=== PATIENT | male | born 1970 | race Caucasian/White ===

== ENCOUNTER 2017-11-17 06:51 | Day surgery (SDC) | payer BC ==
[~2017-11-17] VITALS: Ht 188 cm; Wt 87.7 kg
[~2017-11-17 06:51] MED LIST: LOSA25 PO; MAGCIT300 PO
[2017-11-17] MEDS ORDERED: DIPH50 (07:06)
[2017-11-17] MEDS ORDERED: VALA500 (07:06)
== END 2017-11-17 08:49 | disposition home or self-care (01) ==
LOC: ORSCSDS 06:51
PROVIDERS: Surgery
PROC: 0DJD8ZZ Inspection of Lower Intestinal Tract, Via Natural or Artificial Opening Endoscopic (ICD-10-PCS; principal; 2017-11-17 08:00)
DX: R19.5 Other fecal abnormalities (principal); E78.5 Hyperlipidemia, unspecified; I10 Essential (primary) hypertension; Z83.71 Family history of colonic polyps; Z72.0 Tobacco use; Z79.899 Other long term (current) drug therapy
CPT/HCPCS: J0330; J1980; J2405; J7120

== ENCOUNTER 2024-01-14 05:18 | Inpatient (IN) | payer BC ==
[~2024-01-14] VITALS: Ht 175.3 cm; Wt 83.2 kg
[~2024-01-14 05:18] MED LIST changes: +BENADRYL25 MG PO; +DIPH50; +IBUP200 PO; +TELM80 PO; +TELMISARTAN80 MG PO; +VALA500; +Ventolin/Prove6.7 GM INH; +ZOLP10 PO
[2024-01-14] MEDS ORDERED: MethylPREDNISolone Sod Succ 125 MG Vial IV ONE (05:30)
[2024-01-14] MEDS ORDERED: Magnesium Sulf 2 GM/Water 50ML 50 ML IV ONE (05:30)
[2024-01-14] MEDS ORDERED: NS 1,000 ML IV SCH (05:40)
[2024-01-14 05:41] LABS: Base Excess Venous 0 mmol/L; Bicarbonate Venous 22.6 mmol/L (24.0-30.0); pH Blood Venous 7.26 (7.34-7.37)
[2024-01-14 05:42] LABS: BASOPHILS ABSOLUTE AUTO 0.09 K/mm3 (0.00-0.23); BASOPHILS PERCENT AUTO 1 % (0-2); EOSINOPHILS PERCENT AUTO 23 % (0-6); Hematocrit 50.1 % (37.0-53.0); IMMATURE GRAN ABSOLUTE AUTO 0.04 K/mm3 (0.00-0.10); IMMATURE GRAN PERCENT AUTO 0 % (0-1); LYMPHOCYTES ABSOLUTE AUTO 1.16 K/mm3 (0.84-5.20); LYMPHOCYTES PERCENT AUTO 11 % (21-46); MONOCYTES PERCENT AUTO 8 % (4-13); Mean Corpuscular HGB 35.4 pg (26.0-34.0); Mean Corpuscular HGB Conc 35.9 g/dL (31.5-36.5); Mean Corpuscular Volume 99 fL (80-100); Mean Platelet Volume 9.9 fL (9.1-12.4); NEUTROPHILS ABSOLUTE AUTO 6.14 K/mm3 (1.96-9.15); NEUTROPHILS PERCENT AUTO 58 % (41-73); Platelet Count 200 K/mm3 (150-400); RDW Coefficient Variation 11.9 % (11.7-14.2); RDW Standard Deviation 42.9 fL (35.1-46.3); Red Blood Cell Count 5.08 M/mm3 (4.30-5.90); White Blood Cell Count 10.63 K/mm3 (4.00-11.30)
[2024-01-14 05:44] LABS: PO2 Venous 58.6 mmHg (38-42)
[2024-01-14] MEDS ORDERED: Albuterol 2.5 MG/3 ML VIAL INH SCH (05:45)
[2024-01-14] MEDS ORDERED: Ipratropium Bromide INH 0.02% 0.5 mg/2.5ML Vial INH SCH (05:45)
[2024-01-14] MEDS ORDERED: Ondansetron HCl 2 MG / ML 2ML Vial IV PRN (05:55)
[2024-01-14] MEDS ORDERED: Ipratropium/Albuterol SulF 2.5-0.5MG/3 ML Amp INH PRN (05:55)
[2024-01-14] MEDS ORDERED: MethylPREDNISolone Sod Succ 125 MG Vial IV SCH (06:00)
[2024-01-14 06:02] LABS: Albumin, Blood 3.8 g/dL (3.4-5.0); Albumin/Globulin Ratio 1.1 (0.8-1.8); Bilirubin, Total 0.8 mg/dL (0.1-1.0); Bun/Creatinine Ratio 13.7 (12.0-20.0); Calcium, Blood 8.6 mg/dL (8.5-10.1); Creatinine, Blood 0.88 mg/dL (0.60-1.20); Globulin, Blood 3.6 g/dL (2.2-4.0); Potassium, Blood 4.3 mmol/L (3.5-5.5); Total Protein, Blood 7.4 g/dL (6.4-8.2)
[2024-01-14 06:07] LABS: BASOPHILS PERCENT MAN 0 % (0-2); EOSINOPHILS ABSOLUTE MAN 2.55 K/mm3 (0.00-0.68); EOSINOPHILS PERCENT MAN 24 % (0-6); LYMPHOCYTES ABSOLUTE MAN 1.27 K/mm3 (0.84-5.20); LYMPHOCYTES PERCENT MAN 12 % (21-46); MONOCYTES ABSOLUTE MAN 0.53 K/mm3 (0.16-1.47); MONOCYTES PERCENT MAN 5 % (4-13); NEUTROPHILS ABSOLUTE MAN 6.27 K/mm3 (1.96-9.15); SEG NEUTROPHILS PERCENT MAN 59 % (41-73); TOTAL CELLS COUNTED 100
[2024-01-14] MEDS ORDERED: Azithromycin 500 MG in NS 250 ML IV SCH (06:30)
[2024-01-14 07:45] LABS: Influenza A, PCR NEGATIVE (NEGATIVE); Influenza B, PCR NEGATIVE (NEGATIVE); Resp Syncytial Virus, PCR NEGATIVE (NEGATIVE); SARS-Cov-2 (COVID-19) PCR, MMC NEGATIVE (NEGATIVE)
[2024-01-14 08:11] VITALS: BP 128/88
[2024-01-14 08:15] VITALS: BP 125/84
[2024-01-14] MEDS ORDERED: Enoxaparin 40 MG/0.4 ML SYR SC SCH (09:00)
--- NOTE | 2024-01-14 10:25 | NUR ---
ARRIVAL TO PCU: PT ARRIVED TO [facility] VIA GURNEY AT APPROX [phone]. PT ON RA AT TIME OF ARRIVAL, COMMUNICATING W/ STAFF. ALERT, ORIENTED X4. ABLE TO STAND AND TRANSFER TO BED W/ SBA FROM STAFF. RT TO BEDSIDE W/ BIPAP. SPO2 88-90% ON RA, 3-4L VIA NC PLACED TO MAINTAIN SPO2 >92%. PT REPORTS IMPROVEMENT IN BREATHING BUT STATES IS STILL WORSE THAN BASELINE. BILATERAL WHEEZE T/O. HR 110'S, SINUS ON TELE. BP STABLE, MAP >65. PT DENIES CHEST PAIN/PRESSURE. ABLE TO VOID INDEPENDENTLY IN URINAL. PT ORIENTED TO ROOM/UNIT/CALL LIGHT. FIRE/IGNITION RISK ASSESSED; PT IS NEVER SMOKER, NO IGNITION SOURCES PRESENT. FAMILY AT BEDSIDE. MD WILKERSON TO BEDSIDE THIS AM WELL. NO OTHER NEEDS AT THIS TIME, CALL LIGHT IN REACH.
[2024-01-14 11:36] VITALS: BP 127/91
[2024-01-14] MEDS ORDERED: Losartan Potassium 50 MG Tab PO SCH (12:00)
[2024-01-14] MEDS ORDERED: Ipratropium/Albuterol SulF 2.5-0.5MG/3 ML Amp INH SCH (12:20)
[2024-01-14] MEDS ORDERED: Albuterol 2.5 MG/3 ML VIAL INH PRN (12:20)
[2024-01-14 16:32] VITALS: BP 133/79
--- NOTE | 2024-01-14 16:59 | NUR ---
END OF SHIFT NOTE: NO ACUTE EVENTS FOLLOWING ARRIVAL TO PCU THIS AM. PT HAS REMAINED ALERT, ORIENTED X4. ABLE TO CALL APPROPRIATELY & COMMUNICATE NEEDS W/ STAFF. HR 100-110'S, SINUS ON TELE. SBP 120-130'S, DENIES CP/PRESSURE. SPO2 >90% ON 3-4L VIA NC, BIPAP INTERMITTENTLY. CURRENT BIPAP SETTINGS 12/6 FIO2 30%. AFEBRILE. BREATHING TX T/O SHIFT, PT REPORTS CONTINUED IMPROVEMENT IN BREATHING. ABLE TO EAT LUNCH ON NC & REMAIN ON NC TO CONVERSE W/ FAMILY AT BEDSIDE. VOIDING INDEPENDENTLY IN URINAL. REPOSITIONING IN BED INDEPENDENTLY. DENTAL HYGIENIST TO BEDSIDE THIS AFTERNOON; CALL TO MD WILKERSON REGARDING THRUSH, ORDERS FOR NYSTATIN QID. NO OTHER NEEDS AT THIS TIME. CALL LIGHT IN REACH, BED IN LOWEST POSITION. WILL REPORT TO ONCOMING RN.
[2024-01-14 19:49] VITALS: BP 132/94
--- NOTE | 2024-01-14 20:53 | NUR ---
ASSUMPTION OF CARE AFTER RECEIVING REPORT FROM DAY RN, THIS RN ASSUMED CARE AT APPROX 1915. PATIENT ALERT AND ORIENTED X4. VISITING WITH FAMILY, FRIENDS AT BEDSIDE. TELEMETRY SHOWING SINUS TACH 110s-120s. BP STABLE. DENIES CHEST PAIN, PRESSURE. ON BIPAP 12/6 30%. SATs >90%. REQUESTING A BREAK FROM BIPAP ONCE BREATHING TREATMENT IS COMPLETE. ON 3-4L VIA NC WITH BREAKS. WHEEZING AUSCULTATED T/O. PATIENT IS INDEPENDENT WITH ADL's IN BED. IS A STAND BY ASSIST FOR CORD, DEVICE MANAGEMENT WITH MOBILITY. USES URINAL IN BED. CALL LIGHT IN REACH.
[2024-01-14] MEDS ORDERED: Nystatin 100,000 Unit/ML Susp 5 ML UDC SS SCH (21:00)
[2024-01-15 00:02] VITALS: BP 132/85
[2024-01-15 03:58] VITALS: BP 114/84
[2024-01-15 04:33] LABS: BASOPHILS ABSOLUTE AUTO 0.01 K/mm3 (0.00-0.23); BASOPHILS PERCENT AUTO 0 % (0-2); EOSINOPHILS PERCENT AUTO 0 % (0-6); Hematocrit 46.7 % (37.0-53.0); Hemoglobin 16.4 g/dL (13.5-17.5); IMMATURE GRAN ABSOLUTE AUTO 0.07 K/mm3 (0.00-0.10); IMMATURE GRAN PERCENT AUTO 1 % (0-1); LYMPHOCYTES ABSOLUTE AUTO 0.72 K/mm3 (0.84-5.20); LYMPHOCYTES PERCENT AUTO 7 % (21-46); MONOCYTES ABSOLUTE AUTO 0.17 K/mm3 (0.16-1.47); MONOCYTES PERCENT AUTO 2 % (4-13); Mean Corpuscular HGB 34.7 pg (26.0-34.0); Mean Corpuscular HGB Conc 35.1 g/dL (31.5-36.5); Mean Corpuscular Volume 99 fL (80-100); Mean Platelet Volume 10.1 fL (9.1-12.4); NEUTROPHILS ABSOLUTE AUTO 9.59 K/mm3 (1.96-9.15); NEUTROPHILS PERCENT AUTO 91 % (41-73); Platelet Count 229 K/mm3 (150-400); RDW Coefficient Variation 11.8 % (11.7-14.2); RDW Standard Deviation 43.1 fL (35.1-46.3); Red Blood Cell Count 4.72 M/mm3 (4.30-5.90); White Blood Cell Count 10.56 K/mm3 (4.00-11.30)
--- NOTE | 2024-01-15 04:45 | NUR ---
SHIFT SUMMARY NO ACUTE CHANGES SINCE ASSUMPTION OF CARE. PATIENT RESTED QUIETLY OR SLEPT INTERMITTENTLY THROUGHOUT THE NIGHT. VSS. TELEMETRY CURRENTLY SHOWING SINUS 80s-90s. TOLERATED BIPAP THROUGHOUT NIGHT, SETTINGS REMAIN 12/6 30%. SATs >90%. EXPERIENCES EPISODES OF INCREASED HACKING COUGH. PATIENT DOES REPORT THAT HE FEELS THAT HIS BREATHING HAS IMPROVED SINCE ADMISSION. DECREASED WHEEZING NOTED T/O. PATIENT REPOSITIONS HIMSELF INDEPENDENTLY IN BED. VOIDING. CALL LIGHT IN REACH. BED IN LOWEST POSITION. WILL CONTINUE TO MONITOR AND REPORT TO ONCOMING RN.
[2024-01-15 04:52] LABS: Albumin, Blood 3.5 g/dL (3.4-5.0); Albumin/Globulin Ratio 1.1 (0.8-1.8); Bilirubin, Total 0.4 mg/dL (0.1-1.0); Bun/Creatinine Ratio 20.8 (12.0-20.0); Calcium, Blood 8.9 mg/dL (8.5-10.1); Creatinine, Blood 0.87 mg/dL (0.60-1.20); Globulin, Blood 3.3 g/dL (2.2-4.0); Potassium, Blood 4.8 mmol/L (3.5-5.5); Total Protein, Blood 6.8 g/dL (6.4-8.2)
[2024-01-15 07:14] VITALS: BP 123/77
[2024-01-15 11:27] VITALS: BP 142/106
[2024-01-15 15:43] VITALS: BP 117/78
--- NOTE | 2024-01-15 17:01 | NUR ---
END OF SHIFT NOTE: NO ACUTE EVENTS THIS SHIFT. PT HAS CONTINUED TO USE BIPAP FOR PERIODS OF TIME T/O THE SHIFT, SETTINGS 09/16 30% FIO2. 2-3L VIA NC WHEN OFF BIPAP; SPO2 80'S AT TIMES WHEN SWITCHING BETWEEN NC & BIPAP. REPORTS IMPROVEMENT IN BREATHING SINCE ADMISSION. LUNG SOUNDS W/ EXP WHEEZE T/O. HR 100-110'S, SINUS TACH ON TELE. BP STABLE, MAP >65. PT ABLE TO VOID IN URINAL & REPOSITION SELF INDEPENDENTLY. ABLE TO AMBULATE TO BATHROOM W/ SBA FOR LINE MANAGEMENT. FAMILY AT BEDSIDE FOR ENTIRE SHIFT. NO OTHER NEEDS AT THIS TIME. CALL LIGHT IN REACH, BED IN LOWEST POSITION. WILL REPORT TO ONCOMING RN.
[2024-01-15] MEDS ORDERED: NS 250 ML IV PRN (17:55)
[2024-01-15] MEDS ORDERED: CefTRIAXone Sodium 1,000 MG in NS 100 ML IV SCH (18:00)
[2024-01-15 23:22] VITALS: BP 125/84
[2024-01-16 03:44] VITALS: BP 123/73
[2024-01-16 03:59] LABS: BASOPHILS ABSOLUTE AUTO 0.01 K/mm3 (0.00-0.23); BASOPHILS PERCENT AUTO 0 % (0-2); EOSINOPHILS PERCENT AUTO 0 % (0-6); Hematocrit 44.1 % (37.0-53.0); Hemoglobin 15.4 g/dL (13.5-17.5); IMMATURE GRAN ABSOLUTE AUTO 0.07 K/mm3 (0.00-0.10); IMMATURE GRAN PERCENT AUTO 1 % (0-1); LYMPHOCYTES PERCENT AUTO 5 % (21-46); MONOCYTES ABSOLUTE AUTO 0.39 K/mm3 (0.16-1.47); MONOCYTES PERCENT AUTO 3 % (4-13); Mean Corpuscular HGB 34.5 pg (26.0-34.0); Mean Corpuscular HGB Conc 34.9 g/dL (31.5-36.5); Mean Corpuscular Volume 99 fL (80-100); Mean Platelet Volume 10.3 fL (9.1-12.4); NEUTROPHILS ABSOLUTE AUTO 14.16 K/mm3 (1.96-9.15); NEUTROPHILS PERCENT AUTO 92 % (41-73); Platelet Count 240 K/mm3 (150-400); RDW Coefficient Variation 11.9 % (11.7-14.2); RDW Standard Deviation 43.7 fL (35.1-46.3); Red Blood Cell Count 4.46 M/mm3 (4.30-5.90); White Blood Cell Count 15.43 K/mm3 (4.00-11.30)
[2024-01-16 04:19] LABS: Bun/Creatinine Ratio 35.2 (12.0-20.0); Calcium, Blood 8.8 mg/dL (8.5-10.1); Creatinine, Blood 0.83 mg/dL (0.60-1.20); Potassium, Blood 4.6 mmol/L (3.5-5.5)
--- NOTE | 2024-01-16 05:50 | NUR ---
Pt did not require BiPap overnight, felt work of breathing much better than night prior. Still requiring O2 3 lpm via NC to maintain O2 Sat. Pt appears to have slept well this shift, continues nebulizer treatments with reported good results. Pt reports overall feeling much better. Please see full assessment for further details. No additional complaints or concerns at this time, will continue to monitor.
[2024-01-16] MEDS ORDERED: Azithromycin 500 MG in NS 250 ML IV SCH (09:00)
[2024-01-16] MEDS ORDERED: Lactobacil 2-S.Thermo-Bifido 1 1 Cap PO SCH (09:00)
[2024-01-16] MEDS ORDERED: Benzonatate 100 MG Cap PO PRN (09:00)
[2024-01-16 09:05] VITALS: BP 130/76
[2024-01-16 12:14] VITALS: BP 122/77
--- NOTE | 2024-01-16 12:44 | NUR ---
TRANSFER TO MEDICAL UNIT: PATIENT READY FOR TRANSFER PER ORDERS. REPORT CALLED TO [facility]. PATIENT TRANSFERRED IN WHEELCHAIR WITH HEAT SET OPERATOR. FAMILY ACCOMPANIED THE PATIENT. PATIENT STABLE AT TIME OF DISCHARGE.
--- NOTE | 2024-01-16 13:23 | NUR ---
PT TRANSFERED TO MED FLOOR. THIS RN TOOK OVER CARE. REPORT RECIEVED FROM EXPEDITER SERVICE ORDER. PT IS ON 3L NC. OXIMETER SET UP AT BEDSIDE. PT CURRENTLY SATTING AT 92%. FAMILY AT BEDSIDE. PT REQUESTED BIPAP BE SET UP FOR LATER USE. RT NOTIFIED AND WILL SET UP BIBAP SOON. ALERT AND ORIENTED X4
[2024-01-16 14:49] VITALS: BP 116/72
--- NOTE | 2024-01-16 18:41 | NUR ---
PT IS ALERT AND ORIENTED X4, IV ANTIBIOTICS AND STEROIDS CONTINUED, INDEPENDENT IN THE ROOM, 2L NC, INTERMITTENT DRY COUGH, TREATED PER EMAR. FAMILY HAS BEEN AT THE BEDSIDE DURING SHIFT. PT REPORTS THAT HE FEELS MUCH BETTER TODAY AND WAS ABLE TO TAKE A SHOWER WITH ONLY SLIGHT SOB TOWARDS THE END OF SHOWER. ABLE TO MAKE NEEDS KNOWN, WHEEZING NOTED IN THE LLL. BM TODAY.
[2024-01-16 19:24] VITALS: BP 126/80
[2024-01-17 03:59] VITALS: BP 114/81
[2024-01-17 04:56] LABS: BASOPHILS ABSOLUTE AUTO 0.01 K/mm3 (0.00-0.23); BASOPHILS PERCENT AUTO 0 % (0-2); EOSINOPHILS PERCENT AUTO 0 % (0-6); Hematocrit 42.7 % (37.0-53.0); Hemoglobin 15.1 g/dL (13.5-17.5); IMMATURE GRAN ABSOLUTE AUTO 0.09 K/mm3 (0.00-0.10); IMMATURE GRAN PERCENT AUTO 1 % (0-1); LYMPHOCYTES ABSOLUTE AUTO 0.75 K/mm3 (0.84-5.20); LYMPHOCYTES PERCENT AUTO 6 % (21-46); MONOCYTES ABSOLUTE AUTO 0.31 K/mm3 (0.16-1.47); MONOCYTES PERCENT AUTO 2 % (4-13); Mean Corpuscular HGB 35.1 pg (26.0-34.0); Mean Corpuscular HGB Conc 35.4 g/dL (31.5-36.5); Mean Corpuscular Volume 99 fL (80-100); Mean Platelet Volume 10.5 fL (9.1-12.4); NEUTROPHILS ABSOLUTE AUTO 12.25 K/mm3 (1.96-9.15); NEUTROPHILS PERCENT AUTO 91 % (41-73); Platelet Count 215 K/mm3 (150-400); RDW Coefficient Variation 11.8 % (11.7-14.2); White Blood Cell Count 13.41 K/mm3 (4.00-11.30)
[2024-01-17 05:36] LABS: Bun/Creatinine Ratio 37.1 (12.0-20.0); Calcium, Blood 8.6 mg/dL (8.5-10.1); Creatinine, Blood 0.76 mg/dL (0.60-1.20); Potassium, Blood 4.3 mmol/L (3.5-5.5)
[2024-01-17 07:59] VITALS: BP 127/75
[2024-01-17] MEDS ORDERED: Dextromethorphan Polistirix 30 MG/5 ML 5ML Oral Syringe PO PRN (12:15)
[2024-01-17] MEDS ORDERED: Mometasone/Formoterol MDI 100/5 mcg 13 GM INH SCH (13:50)
--- NOTE | 2024-01-17 15:19 | NUR ---
DAY SHIFT SUMMARY PT A&O X 4, PLEASANT. AT BEDSIDE MOST OF THE DAY. PT CONTINUED ON 2L 02 DUE TO REPORTING SOB WITH ANY KIND OF EXERTION OR COUGHING. PT HAS FEAR THAT THE SOB/COUGH WILL CAUSE AN ASTHMA ATTACK. PT BIOX REMAINED STABLE THROUGHOUT THE DAY. PT REPORTING THAT HIS LUNGS HAVE NEVER FELT YANCI SAME SINCE HE HAD COVID IN 2022. LUNGS SOUND CLEAR/DIMINISHED. COUGH HAS SCANT AMOUNT OF CLEAR-YELLOW SPUTUM. PT PHYSICIAN ADDED COUGH SYRUP TODAY AND DISCONTINUED THE TESSALON PEARLS. PT RESTING COMFORTABLY THROUGHOUT THE SIFT. NO ACUTE CHANGES. 01/17/24 ARABELLA BARRAZA RN
[2024-01-17 15:25] VITALS: BP 138/87
[2024-01-17] MEDS ORDERED: Omeprazole 20 MG CapCR PO SCH (16:30)
[2024-01-17] MEDS ORDERED: NS 100 ML IV ONE (16:51)
[2024-01-17 19:28] VITALS: BP 133/92
[2024-01-18 03:34] VITALS: BP 121/79
[2024-01-18 05:18] LABS: BASOPHILS ABSOLUTE AUTO 0.03 K/mm3 (0.00-0.23); BASOPHILS PERCENT AUTO 0 % (0-2); EOSINOPHILS PERCENT AUTO 0 % (0-6); Hematocrit 42.9 % (37.0-53.0); Hemoglobin 15.1 g/dL (13.5-17.5); IMMATURE GRAN ABSOLUTE AUTO 0.26 K/mm3 (0.00-0.10); IMMATURE GRAN PERCENT AUTO 2 % (0-1); LYMPHOCYTES ABSOLUTE AUTO 1.08 K/mm3 (0.84-5.20); LYMPHOCYTES PERCENT AUTO 8 % (21-46); MONOCYTES ABSOLUTE AUTO 0.97 K/mm3 (0.16-1.47); MONOCYTES PERCENT AUTO 7 % (4-13); Mean Corpuscular HGB 34.9 pg (26.0-34.0); Mean Corpuscular HGB Conc 35.2 g/dL (31.5-36.5); Mean Corpuscular Volume 99 fL (80-100); Mean Platelet Volume 10.6 fL (9.1-12.4); NEUTROPHILS ABSOLUTE AUTO 10.89 K/mm3 (1.96-9.15); NEUTROPHILS PERCENT AUTO 82 % (41-73); Platelet Count 208 K/mm3 (150-400); RDW Coefficient Variation 11.5 % (11.7-14.2); RDW Standard Deviation 42.3 fL (35.1-46.3); Red Blood Cell Count 4.33 M/mm3 (4.30-5.90); White Blood Cell Count 13.23 K/mm3 (4.00-11.30)
--- NOTE | 2024-01-18 05:57 | NUR ---
SUMMARY: PT A/OX4, IS INDEPENDENT IN ROOM AND CALLS APPROPRIATELY TO SPECIFY NEEDS. HE REPORTS FEELING MUCH BETTER AND STATES THAT DYSPNEA AND SOB IS DRASTICALLY IMPROVED. SPO2 IS WNL ON 1.5L NC AND CONT BIOX IS INTACT. PRN COUGH MEDICINE WAS RECEIVED FOR TOLERABLE RELIEF AND RT PROVIDED TX'S/NEBS PER EMAR. HE WAS NSR AT 70'S-90'S BPM. NO ACUTE CHANGES AND VSS/AFEBRILE. WCTM AND REPORT TO DAY RN.
[2024-01-18 07:44] VITALS: BP 127/83
[2024-01-18] MEDS ORDERED: Dextromethorphan Polistirix 30 MG/5 ML 5ML Oral Syringe PO PRN (08:00)
[2024-01-18] MEDS ORDERED: PredniSONE 20 MG Tab PO SCH (09:00)
[2024-01-18] MEDS ORDERED: AMOCLA875 PO (12:45)
[2024-01-18] MEDS ORDERED: DEXT30SU PO (12:48)
[2024-01-18] MEDS ORDERED: IPRAT-ALBUT 0.5-3 ML INH (12:49)
[2024-01-18] MEDS ORDERED: DULERA 100 MCG/13 GM INH (12:51)
[2024-01-18] MEDS ORDERED: NYSTATIN100000 U10 MT (12:53)
[2024-01-18] MEDS ORDERED: OMEP20ER PO (12:54)
[2024-01-18] MEDS ORDERED: PRED20 PO (12:57)
[2024-01-18] MEDS ORDERED: VISBIOME 112.51 EACH PO (12:58)
--- NOTE | 2024-01-18 13:48 | NUR ---
PT DISCHARGED HOME. DISCHARGE INSTRUCTIONS DISCUSSED WITH PT AND SPOUSE. PT ONLY CONCERN WAS HIS COUGH, PER MD. HE COULD HAVE COUGH FOR UP TO A MONTH. EMPHASIZED IMPORTANCE OF NOT PUSHING HIMSELF TOO HARD AND TO REST IF HE FEELS SOB. EXPLAINED IMPORTANCE OF TAKING MEDICATIONS PRESCRIBED AND FOLLOW UP WITH PCP AND ZIPPER CUTTER. ALERT AND ORIENTED X4 R/A. TRANSPORTED TO CAR BY WHEELCHAIR.
== END 2024-01-18 13:40 | disposition home or self-care (01) | DRG 871 ==
LOC: ER 05:18 → PCU 05:50 → MEDS 05:50 → PCU 08:03 → MEDS 01-16 12:47
PROVIDERS: Emergency Medicine; Internal Medicine; ADMIT Internal Medicine
DX: A41.9 Sepsis, unspecified organism (principal); J18.9 Pneumonia, unspecified organism; J96.01 Acute respiratory failure with hypoxia; J45.901 Unspecified asthma with (acute) exacerbation; T38.0X5A Adverse effect of glucocorticoids and synthetic analogues, initial encounter; I10 Essential (primary) hypertension; R73.9 Hyperglycemia, unspecified; Z86.16 Personal history of COVID-19; D72.19 Other eosinophilia; Z88.5 Allergy status to narcotic agent; Z79.899 Other long term (current) drug therapy; Z88.8 Allergy status to other drugs, medicaments and biological substances; R63.4 Abnormal weight loss; Z68.22 Body mass index [BMI] 22.0-22.9, adult
CPT/HCPCS: 0241U; 36415; 71045; 80048; 80053; 82803; 83036; 84145; 85025; 85379; 87449; 94640; 94644; 94660; 94664; 94760; 94762; 96365; 96366; 96368; 96375; 99285-25; A9270; J0456; J0696; J1650; J2930; J3475; J7030; J7050; J7512

== ENCOUNTER 2024-08-23 04:09 | Emergency (ER) | payer BC ==
[~2024-08-23] VITALS: Ht 188 cm; Wt 88.5 kg
[~2024-08-23 04:09] MED LIST changes: +AMOCLA875 PO; +DEXT30SU PO; +DULERA 100 MCG/13 GM INH; +IPRAT-ALBUT 0.5-3 ML INH; +NYSTATIN100000 U10 MT; +OMEP20ER PO; +PRED20 PO; +VISBIOME 112.51 EACH PO
[2024-08-23] MEDS ORDERED: Azithromycin 250 MG Tab PO ONE (05:30)
[2024-08-23] MEDS ORDERED: AZIT250 PO (05:39)
[2024-08-23] MEDS ORDERED: DELTASONE20 MG PO (05:39)
== END 2024-08-23 05:47 | disposition home or self-care (01) ==
LOC: ER 04:09
DX: J45.901 Unspecified asthma with (acute) exacerbation (principal); I10 Essential (primary) hypertension; Z20.818 Contact with and (suspected) exposure to other bacterial communicable diseases; Z79.899 Other long term (current) drug therapy; Z88.5 Allergy status to narcotic agent
CPT/HCPCS: 99283; A9270

== ENCOUNTER 2025-02-15 12:12 | Emergency (ER) | payer BC ==
[~2025-02-15] VITALS: Ht 188 cm; Wt 72.6 kg
[~2025-02-15 12:12] MED LIST changes: +AZIT250 PO; +DELTASONE20 MG PO
[2025-02-15 13:08] LABS: BASOPHILS ABSOLUTE AUTO 0.04 K/mm3 (0.00-0.23); BASOPHILS PERCENT AUTO 0 % (0-2); EOSINOPHILS ABSOLUTE AUTO 0.21 K/mm3 (0.00-0.68); EOSINOPHILS PERCENT AUTO 2 % (0-6); Hematocrit 42.3 % (37.0-53.0); IMMATURE GRAN ABSOLUTE AUTO 0.04 K/mm3 (0.00-0.10); IMMATURE GRAN PERCENT AUTO 0 % (0-1); LYMPHOCYTES ABSOLUTE AUTO 0.89 K/mm3 (0.84-5.20); LYMPHOCYTES PERCENT AUTO 7 % (21-46); MONOCYTES ABSOLUTE AUTO 1.07 K/mm3 (0.16-1.47); MONOCYTES PERCENT AUTO 8 % (4-13); Mean Corpuscular HGB 34.3 pg (26.0-34.0); Mean Corpuscular HGB Conc 35.5 g/dL (31.5-36.5); Mean Corpuscular Volume 97 fL (80-100); Mean Platelet Volume 9.9 fL (9.1-12.4); NEUTROPHILS ABSOLUTE AUTO 11.49 K/mm3 (1.96-9.15); NEUTROPHILS PERCENT AUTO 84 % (41-73); Platelet Count 312 K/mm3 (150-400); RDW Coefficient Variation 11.7 % (11.7-14.2); RDW Standard Deviation 41.7 fL (35.1-46.3); Red Blood Cell Count 4.37 M/mm3 (4.30-5.90); White Blood Cell Count 13.74 K/mm3 (4.00-11.30)
[2025-02-15 13:37] LABS: Albumin, Blood 1.5 g/dL (3.4-5.0); Albumin/Globulin Ratio 0.3 (0.8-1.8); Bilirubin, Total 0.6 mg/dL (0.1-1.0); Bun/Creatinine Ratio 25.2 (12.0-20.0); Calcium, Blood 8.7 mg/dL (8.5-10.1); Creatinine, Blood 0.83 mg/dL (0.60-1.20); Globulin, Blood 4.6 g/dL (2.2-4.0); Total Protein, Blood 6.1 g/dL (6.4-8.2)
[2025-02-15] MEDS ORDERED: Lidocaine 4% 1 Patch TOP ONE (15:10)
[2025-02-15] MEDS ORDERED: HYDROcodone 5-APAP 325 TAB PO ONE (15:10)
[2025-02-15] MEDS ORDERED: HYDR1TAB94 PO (15:27)
[2025-02-15] MEDS ORDERED: NARCAN4 M1 (15:27)
== END 2025-02-15 15:26 | disposition home or self-care (01) ==
LOC: ER 12:12
PROVIDERS: Student in an Organized Health Care Education/Training Program
DX: S22.42XA Multiple fractures of ribs, left side, initial encounter for closed fracture (principal); R07.89 Other chest pain; I10 Essential (primary) hypertension; J44.9 Chronic obstructive pulmonary disease, unspecified; W17.89XA Other fall from one level to another, initial encounter; Z88.5 Allergy status to narcotic agent; Z79.899 Other long term (current) drug therapy
CPT/HCPCS: 71260; 80053; 85025; 99283-25; A9270; Q9967